=== PATIENT | male | born 1995 | race African-American/Black ===

== ENCOUNTER 2020-02-19 09:22 | Emergency (ER) | payer SELFPAY ==
[~2020-02-19] VITALS: Ht 175.3 cm; Wt 72.7 kg
[2020-02-19 09:29] VITALS: TEMP 98.4
[2020-02-19 11:23] VITALS: BP 127/93; PULSE 82
== END 2020-02-19 11:24 | disposition home or self-care (01) ==
LOC: COL.ER 09:22 → EDBD 09:23 → COL.ER 11:24
DX: S00.81XA Abrasion of other part of head, initial encounter (principal); S09.90XA Unspecified injury of head, initial encounter; H57.11 Ocular pain, right eye; W01.10XA Fall on same level from slipping, tripping and stumbling with subsequent striking against unspecified object, initial encounter; Y93.B9 Activity, other involving muscle strengthening exercises